=== PATIENT | female | born 1980 | race Two or more races ===

== ENCOUNTER 2022-10-15 03:23 | Emergency (ER) | payer OTHER ==
[~2022-10-15] VITALS: Ht 154.9 cm; Wt 59.0 kg
[2022-10-15] MEDS ORDERED: TOPROL XL50 M1 PO (03:57)
== END 2022-10-15 05:46 | disposition home or self-care (01) ==
LOC: ER 03:23
DX: S09.93XA Unspecified injury of face, initial encounter (principal); W19.XXXA Unspecified fall, initial encounter; Y93.9 Activity, unspecified; Y92.9 Unspecified place or not applicable; F10.129 Alcohol abuse with intoxication, unspecified